=== PATIENT | female | born 1935 | race Caucasian/White ===

== ENCOUNTER 2022-12-04 13:13 | Inpatient (IN) | payer OTHER, SELFPAY ==
[2022-12-04] VITALS (16 sets, daily range): BP systolic 100–165; BP diastolic 58–82; PULSE 87–104; RESP 14–20; TEMP 36.4–36.8; O2SAT 91–97; BMI 19.0; BMI 24.5
--- NOTE | 2022-12-04 13:45 | DI.RAD.S_ITS ---
PROCEDURE: XR FEMUR LT MIN 2V INDICATIONS: fall onto knee, severe pain in hip, h/o path fx / osteoporosis TECHNIQUE: 2 views of the femur were acquired. COMPARISON: [facility], CR, XR HIP W PEL IF DONE LT 2V, 12/04/2022, 14:20. [facility], CR, XR KNEE LT 3V, 12/04/2022, 14:20. FINDINGS: Bones: There is a mildly displaced, comminuted fracture seen involving the left greater trochanter. No additional femur fracture is seen. Soft tissues: No suspicious soft tissue calcifications or masses. Pelvic clips are partially seen. IMPRESSION: Mildly displaced, comminuted fracture present involving the left greater trochanter. Dictated by: Tano Cruz M.D. on 12/04/2022 at 13:47 Approved by: Tano Cruz M.D. on 12/04/2022 at 13:47
--- NOTE | 2022-12-04 13:45 | DI.RAD.S_ITS ---
PROCEDURE: XR KNEE LT 3V INDICATIONS: fall onto knee, severe pain in hip, h/o path fx / osteoporosis TECHNIQUE: 3 views of the knee were acquired. COMPARISON: None. FINDINGS: Artifact can be seen on the frontal image. Bones: No fractures or dislocations. No suspicious bony lesions. There is moderate medial femorotibial joint space narrowing seen, with associated remodeling changes including subchondral sclerosis and osteophyte formation along the jointline. On the sunrise view, there is moderate lateral patellofemoral joint space narrowing seen. Osteophyte formation can be seen along the margins of the patella. Soft tissues: No joint effusion. No suspicious soft tissue calcifications. IMPRESSION: Negative for acute bony injury by plain film. If there is point tenderness (or other clinical suspicion for a fracture not seen on these images) then a dedicated CT could be considered for further evaluation, if clinically appropriate. Underlying osteoarthritic degenerative changes are seen. Dictated by: Tano Cruz M.D. on 12/04/2022 at 13:41 Approved by: Tano Cruz M.D. on 12/04/2022 at 13:42
--- NOTE | 2022-12-04 13:45 | DI.RAD.S_ITS ---
PROCEDURE: XR HIP W PEL IF DONE LT 2V INDICATIONS: fall onto knee, severe pain in hip, h/o path fx / osteoporosis TECHNIQUE: AP pelvis with lateral view(s) of the left hip(s). COMPARISON: [facility], CR, XR KNEE LT 3V, 12/04/2022, 14:20. [facility], CR, XR FEMUR LT MIN 2V, 12/04/2022, 14:20. FINDINGS: Bones: There is a mildly displaced fracture seen involving the left greater trochanter. Remote appearing fractures can be seen involving the right superior and inferior pubic rami. Pelvic ring appears intact. No suspicious bony lesions. Underlying degenerative changes and osteopenia can be seen. Soft tissues: The visualized bowel gas pattern is normal. No suspicious soft tissue calcifications. Bilateral pelvic clips are seen. IMPRESSION: Mildly displaced fracture involving the left greater trochanter. Remote appearing fractures can be seen of the right superior pubic ramus and the right inferior pubic ramus. Dictated by: Tano Cruz M.D. on 12/04/2022 at 13:44 Approved by: Tano Cruz M.D. on 12/04/2022 at 13:45
[2022-12-04 15:14] LABS: Add Manual Diff / Slide Review NO; Basophils Absolute Auto 100 /uL (0-100); Basophils Percent Auto 0.6 % (0-2); Eosinophils Absolute Auto 400 /uL (0-450); Eosinophils Percent Auto 4.2 % (2-4); Hemoglobin 12.3 g/dL (12.0-16.0); Lymphocytes Absolute Auto 1300 /uL (1100-4500); Lymphocytes Percent Auto 13.4 % (25-40); Mean Corpuscular HGB Conc 34.1 % (30-36); Mean Corpuscular Hemoglobin 30.2 PG (26-34); Mean Corpuscular Volume 88.8 fL (80-100); Monocytes Absolute Auto 1100 /uL (0-900); Monocytes Percent Auto 11.1 % (3-14); Neutrophils Absolute Auto 6800 /uL (1500-7000); Neutrophils Percent Auto 70.7 % (50-75); Platelet Count 320 X10^3/uL (150-400); Red Blood Cell Count 4.05 X10^6/uL (4.0-5.2); Red Cell Distribution Width 14.5 % (11.6-14.8); White Blood Cell Count 9.5 X10^3/uL (4.5-11.0)
[2022-12-04] MEDS: ONDANSETRON 4 MG/2 ML INJ IV ×2 (15:15→18:14)
[2022-12-04 15:16] LABS: INR 1.1 (0.9-1.3); Prothrombin Time 13.1 SECONDS (10.1-12.7)
[2022-12-04 15:18] LABS: Alanine Aminotransferase 24 IU/L (<35); Albumin 4.2 g/dL (3.5-5.0); Albumin Globulin Ratio 1.4 (1.0-2.8); Alkaline Phosphatase 85 U/L (38-126); Aspartate Aminotransferase 30 IU/L (14-36); BUN Creatinine Ratio 37.8 (6-22); Bilirubin Total 0.5 mg/dL (0.2-1.3); Blood Urea Nitrogen 17 mg/dL (7-17); Calcium 9.4 mg/dL (8.4-10.2); Carbon Dioxide 26 mmol/L (22-32); Chloride 94 mmol/L (98-107); Estimated Glomerular Filt Rate > 60 mL/min (>60); Globulin 2.9 g/dL (1.7-4.1); Glucose 123 mg/dL (80-110); HEMOLYSIS 29 (0-50); Lipase 58 U/L (23-300); Potassium 3.9 mmol/L (3.4-5.1); Sodium 130 mmol/L (137-145); Total Protein 7.1 g/dL (6.3-8.2)
[2022-12-04] MEDS: SODIUM CHLORIDE 0.9% 1,000 ML 150 ML IV (16:32)
--- NOTE | 2022-12-04 17:30 | ED_ITS ---
HPI - Fall General Chief Complaint: Fall Stated Complaint: GLF, Left hip pain Time Seen by Provider: 12/04/22 15:03 Source: patient and EMS Mode of arrival: EMS History of Present Illness HPI Narrative: 87-year-old woman with a history of hypertension hyperlipidemia at their [place] home on [facility] when she slipped on a wet spot in the grass [place] on her left hip. She was unable to get up. She did not hit her head and complains of no other injuries. Recently has been at her baseline level of excellent health without any fevers, chills, cough, chest pain, dyspnea. Related Data Home Medications Medication Instructions Recorded Confirmed amlodipine 2.5 mg tablet 2.5 mg PO DAILY 12/04/22 12/04/22 atorvastatin 40 mg tablet 40 mg PO DAILY 12/04/22 12/04/22 bisoprolol fumarate 5 mg tablet 5 mg PO DAILY 12/04/22 12/04/22 Allergies Allergy/AdvReac Type Severity Reaction Status Date / Time Sulfa (Sulfonamide AdvReac Verified 12/04/22 20:30 Antibiotics) Review of Systems Review of Systems Narrative: Pertinent positive and negative findings as per HPI Patient History Medical History (Updated 12/05/22 @ 10:01 by Malini Steven MD) Recurrent falls Closed left hip fracture Hyperlipidemia Hypertension Social History household members: spouse Smoking Status: Never smoker alcohol intake: current Exam Initial Vital Signs Initial Vital Signs: Vital Signs Temperature 98.2 F 12/04/22 13:41 Pulse Rate 87 12/04/22 13:41 Respiratory Rate 20 12/04/22 13:41 Blood Pressure 155/82 H 12/04/22 13:41 Pulse Oximetry 97 12/04/22 13:41 Oxygen Delivery Method Room Air 12/04/22 13:41 General: Healthy appearing, in no acute distress. Able to give a complete and coherent history. Well-nourished well-developed HEENT: Moist mucous membranes, normal sclera with reactive pupils, Neck: No midline cervical spine tenderness, supple Respiratory: Lungs are clear to auscultation, no wheezing no rales no rhonchi. Full and symmetrical air movement Cardiac: Regular rate and rhythm no murmurs no bruits Abdomen: Soft, nontender, good bowel tones, no flank pain Skin: Warm and dry, no rashes Neurologic: Grossly neurologically intact with no obvious asymmetries or abnormalities Extremities: Left hip is tender to palpation but no obvious contusion, she is neurovascularly intact distally Psych: Cooperative, appropriate insight and affect Course Orders Ordered: Acetaminophen (Acetaminophen 325 Mg Tablet) 650 mg PO Q6H PRN PRN Reason: Fever/Mild Pain (1-3) Hydromorphone HCl (Hydromorphone 0.5 Mg Inj) 0.25 mg IV Q3H PRN PRN Reason: Pain, Severe (7-10) Naloxone HCl (Naloxone 0.4 Mg/Ml Vial) 0.2 mg IV Q2MIN PRN PRN Reason: Opiate Reversal Ondansetron HCl (Ondansetron 4 Mg Odt) 4 mg SL Q4HR PRN PRN Reason: Nausea Ondansetron HCl (Ondansetron 4 Mg/2 Ml Inj) 4 mg IV Q4HR PRN PRN Reason: Nausea And Vomiting Oxycodone HCl (Oxycodone Ir 5 Mg Tablet) 5 mg PO Q3H PRN PRN Reason: Pain, Moderate (4-6) Oxycodone HCl (Oxycodone Ir 10 Mg Tablet) 10 mg PO Q3H PRN PRN Reason: Pain, Severe (7-10) Discontinued Medications Acetaminophen (Acetaminophen 325 Mg Tablet) 650 mg PO NOW ONE Stop: 12/04/22 18:29 Last Admin: 12/04/22 18:55 Dose: 650 mg Documented By: JOSEFA Hydromorphone HCl (Hydromorphone 0.5 Mg Inj) 0.5 mg IV Q15MIN PRN PRN Reason: Pain, Last Admin: 12/04/22 17:54 Dose: 0.5 mg Documented By: MIRANDA Hydromorphone HCl (Hydromorphone 0.5 Mg Inj) 0.25 mg IV Q15MIN PRN PRN Reason: Pain, Hydromorphone HCl (Hydromorphone 0.5 Mg Inj) 0.5 mg IV Q2H PRN PRN Reason: Pain, Severe (7-10) Sodium Chloride (Normal Saline 0.9%) 1,000 mls @ 150 mls/hr IV CONT [facility] Last Infusion: 12/04/22 20:09 Dose: 150 mls/hr Documented By: Admin: 12/04/22 16:32 Dose: 150 mls/hr Documented By: MIRANDA Dextrose/Lactated Ringer's (Dextrose 5%-Lactated Ringers) 1,000 mls @ 75 mls/hr IV CONT [facility] Last Admin: 12/04/22 20:56 Dose: 75 mls/hr Documented By: MICHAEL Ibuprofen (Ibuprofen 400 Mg Tablet) 400 mg PO Q4H PRN PRN Reason: Pain, Mild (1-3) Ondansetron HCl (Ondansetron 4 Mg Odt) 4 mg PO NOW PRN PRN Reason: Nausea And Vomiting Ondansetron HCl (Ondansetron 4 Mg/2 Ml Inj) 4 mg IV NOW PRN PRN Reason: Nausea And Vomiting Last Admin: 12/04/22 18:14 Dose: 4 mg Documented By: MIRANDA Ondansetron HCl (Ondansetron 4 Mg/2 Ml Inj) 4 mg IV NOW ONE Stop: 12/04/22 15:04 Last Admin: 12/04/22 15:15 Dose: 4 mg Documented By: JORDANA Ondansetron HCl (Ondansetron 4 Mg/2 Ml Inj) 4 mg IV Q4HR [facility] Last Admin: 12/05/22 00:41 Dose: Not Given Documented By: Admin: 12/04/22 20:58 Dose: Not Given Documented By: MICHAEL Ondansetron HCl (Ondansetron 4 Mg Odt) 4 mg PO Q4HR [facility] Last Admin: 12/05/22 00:41 Dose: Not Given Documented By: Admin: 12/04/22 20:58 Dose: Not Given Documented By: MICHAEL Vital Signs Vital signs: Vital Signs - 8 hr 12/04/22 13:41 12/04/22 15:08 12/04/22 15:10 Temperature 98.2 F Pulse Rate 87 100 H Respiratory Rate 20 16 Blood Pressure 155/82 H 159/71 H Pulse Oximetry 97 96 Oxygen Delivery Method Room Air 12/04/22 15:10 12/04/22 15:30 12/04/22 15:31 Temperature Pulse Rate 100 H 97 H Respiratory Rate Blood Pressure 159/70 H Pulse Oximetry 94 92 Oxygen Delivery Method 12/04/22 15:31 12/04/22 16:00 12/04/22 16:01 Temperature Pulse Rate 97 H 103 H Respiratory Rate 14 Blood Pressure 145/78 H Pulse Oximetry 96 93 Oxygen Delivery Method Room Air Room Air 12/04/22 16:01 12/04/22 16:30 12/04/22 16:30 Temperature Pulse Rate 102 H 97 H Respiratory Rate Blood Pressure 122/64 Pulse Oximetry 92 94 Oxygen Delivery Method Room Air Room Air 12/04/22 17:00 12/04/22 17:00 Temperature Pulse Rate 92 H Respiratory Rate Blood Pressure 138/59 L Pulse Oximetry 93 Oxygen Delivery Method Room Air Room Air MDM - Fall Lab Data 12/05/22 04:54 12/05/22 04:54 Labs: Lab Results 12/04/22 12/04/22 Range/Units 13:30 15:35 WBC 9.5 (4.5-11.0) X10^3/uL RBC 4.05 (4.0-5.2) X10^6/uL Hgb 12.3 (12.0-16.0) g/dL Hct 36.0 (36-46) % MCV 88.8 (80-100) fL MCH 30.2 (26-34) PG MCHC 34.1 (30-36) % RDW 14.5 (11.6-14.8) % Plt Count 320 (150-400) X10^3/uL Neut % (Auto) 70.7 (50-75) % Lymph % (Auto) 13.4 L (25-40) % [place] % (Auto) 11.1 (3-14) % Eos % (Auto) 4.2 H (2-4) % Baso % (Auto) 0.6 (0-2) % Neut # (Auto) 6800 (0509-8863) /uL Lymph # (Auto) 1300 (3000-1281) /uL [place] # (Auto) 1100 H (0-900) /uL Eos # (Auto) 400 (0-450) /uL Baso # (Auto) 100 (0-100) /uL PT 13.1 H (10.1-12.7) SECONDS INR 1.1 (0.9-1.3) Sodium 130 L (137-145) mmol/L Potassium 3.9 (3.4-5.1) mmol/L Chloride 94 L (98-107) mmol/L Carbon Dioxide 26 (22-32) mmol/L BUN 17 (7-17) mg/dL Creatinine 0.45 L (0.52-1.04) mg/dL Estimated GFR > 60 (>60) mL/min BUN/Creatinine Ratio 37.8 H (6-22) Glucose 123 H (80-110) mg/dL Calcium 9.4 (8.4-10.2) mg/dL Total Bilirubin 0.5 (0.2-1.3) mg/dL AST 30 (14-36) IU/L ALT 24 (<35) IU/L Alkaline Phosphatase 85 (38-126) U/L Total Protein 7.1 (6.3-8.2) g/dL Albumin 4.2 (3.5-5.0) g/dL Globulin 2.9 (1.7-4.1) g/dL Albumin/Globulin Ratio 1.4 (1.0-2.8) Lipase 58 (23-300) U/L Blood Type B Positive Antibody Screen Negative MDM Narrative Medical decision making narrative: CC: Fall with left hip pain, mechanical fall Complicating co-morbidities: Age Data collected from: patient, air lift Social determinants of health that may influence the patients condition: Patient lives in both [place] and on [facility] Medical records reviewed: No records are available for review Differential considered: Hip fracture, pelvic fracture, hematoma, alternate trauma Exam documented above, pertinent findings include: Tenderness along the left hip, unable to bear weight Lab Test results independently reviewed as above. Pertinent findings: CBC is unremarkable Chemistries show mild hyponatremia at 130, normal creatinine Imaging studies independently reviewed: X-ray of the pelvis is unremarkable X-ray of the left knee is unremarkable X-ray of the hip shows a mildly displaced fracture involving the left greater trochanter MRI hip: Comminuted left intertrochanteric fracture. Moderate associated edema. Consultations:Discussion with Dr Torres, reviewed x-rays in real-time. Requested MRI to help with acute fracture management Discussed with Dr. Trevino, hospitalist will admit the patient. Treatments: Oral Tylenol, IV Dilaudid Discussion: Patient with mechanical fall, left hip fracture MRI is currently pending is admitted to the hospitalist service with orthopedic consultation. Findings reviewed with the patient, pain is controlled questions are answered she is safe for transfer to the floor Discharge Plan Departure Patient Disposition: Admitted As Inpatient Clinical Impression: Fall from ground level Closed hip fracture Qualifiers: Encounter type: initial encounter Laterality: left Qualified Code(s): S72.002A - Fracture of unspecified part of neck of left femur, initial encounter for closed fracture Admit Date/Time: 12/04/22 18:58 Admit Provider: Arian Trevino
[2022-12-04] MEDS: HYDROMORPHONE 0.5 MG INJ IV (17:54)
--- NOTE | 2022-12-04 18:22 | DI.MRI.S_ITS ---
PROCEDURE: MR HIP LT WO CON INDICATIONS: fracture, ortho request TECHNIQUE: Noncontrast coronal T1 spin echo and STIR through the bony pelvis. Coronal and axial T2 fast spin echo with fat saturation, sagittal T1 spin echo, and oblique axial T2 fast spin echo with fat saturation through the hip. COMPARISON: [facility], CR, XR FEMUR LT MIN 2V, 12/04/2022, 14:20. [facility], CR, XR HIP W PEL IF DONE LT 2V, 12/04/2022, 14:20. FINDINGS: Image quality: Excellent. Bones and joints: Acute comminuted fracture of the left intertrochanteric hip (04/16). Associated bone marrow edema. The fracture extends to the cortex at the medial aspect. The fracture is nondisplaced. No avascular necrosis of the femoral heads. The visualized lower lumbar spine appears normally aligned. Tendons and ligaments: The gluteus medius and minimus tendons appear intact. The iliopsoas tendon appears intact. The origin of the hamstring tendon is intact at the ischial tuberosity. The straight and reflected heads of the rectus femoris muscle origin appear intact. Labrum and cartilage: The acetabular labrum appears intact in the absence of intra-articular contrast. Cartilage surface of the femoral head appears of normal thickness. Soft tissues: Small hematoma adjacent to the left hip. Moderate edema. Bladder is decompressed with Harris catheter. Visualized muscles demonstrate normal bulk. The proximal sciatic neurovascular bundle appears normal adjacent to the hamstring tendons. IMPRESSION: Comminuted left intertrochanteric fracture. Moderate associated edema. Dictated by: Kp Kaye M.D. on 12/05/2022 at 9:20 Approved by: Kp Kaye M.D. on 12/05/2022 at 9:27
[2022-12-04] MEDS: ACETAMINOPHEN 325 MG TABLET 650 MG PO (18:55)
--- NOTE | 2022-12-04 20:05 | PM.HP.1 ---
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 She slipped on a wet grass landing on left hip. On admission with left hip pain and no additional complaints. Xrays showed minimally displaced left greater trochanter fracture, in addition to old right superior and inferior pubic rami and osteoporosis. On admission somewhat confused, possibly from pain medications although can be redirected. Reports on lack of balance and blepharospasms contributing to her falls. 6 years ago she sustained pelvic fracture. Aware of osteoporosis, takes only MVI. [facility] Medical History (Updated 12/04/22 @ 21:26 by Hossein Eckert MD) Recurrent falls Closed left hip fracture Hyperlipidemia Hypertension Social History household members: spouse Smoking Status: Never smoker alcohol intake: current Meds Home Medications and Allergies Home Medications Medication Instructions Recorded Confirmed Type amlodipine 2.5 mg tablet 2.5 mg PO DAILY 12/04/22 12/04/22 History atorvastatin 40 mg tablet 40 mg PO DAILY 12/04/22 12/04/22 History bisoprolol fumarate 5 mg tablet 5 mg PO DAILY 12/04/22 12/04/22 History Allergies Allergy/AdvReac Type Severity Reaction Status Date / Time Sulfa (Sulfonamide AdvReac Verified 12/04/22 20:30 Antibiotics) Review of Systems Review of Systems Narrative: Confused, poor historian Constitutional Comments: no fever or chills Cardiovascular Comments: w/o chest pain or palpitations Respiratory Comments: w/o shortness of breath Musculoskeletal Comments: left hip pain Exam Vital Signs (past 8 hours): - 12/04/22 13:41 12/04/22 15:08 12/04/22 15:10 Temperature 98.2 F Pulse Rate 87 100 H Respiratory Rate 20 16 Blood Pressure 155/82 H 159/71 H Pulse Oximetry 97 96 Oxygen Delivery Method Room Air 12/04/22 15:10 12/04/22 15:30 12/04/22 15:31 Temperature Pulse Rate 100 H 97 H Respiratory Rate Blood Pressure 159/70 H Pulse Oximetry 94 92 Oxygen Delivery Method 12/04/22 15:31 12/04/22 16:00 12/04/22 16:01 Temperature Pulse Rate 97 H 103 H Respiratory Rate 14 Blood Pressure 145/78 H Pulse Oximetry 96 93 Oxygen Delivery Method Room Air Room Air 12/04/22 16:01 12/04/22 16:30 12/04/22 16:30 Temperature Pulse Rate 102 H 97 H Respiratory Rate Blood Pressure 122/64 Pulse Oximetry 92 94 Oxygen Delivery Method Room Air Room Air 12/04/22 17:00 12/04/22 17:00 12/04/22 17:30 Temperature Pulse Rate 92 H Respiratory Rate Blood Pressure 138/59 L 129/58 L Pulse Oximetry 93 Oxygen Delivery Method Room Air Room Air 12/04/22 17:30 12/04/22 18:00 12/04/22 18:01 Temperature Pulse Rate 101 H 104 H Respiratory Rate Blood Pressure 165/69 H Pulse Oximetry 92 93 Oxygen Delivery Method 12/04/22 18:01 12/04/22 18:30 12/04/22 18:30 Temperature Pulse Rate 104 H 101 H Respiratory Rate Blood Pressure 110/73 Pulse Oximetry 95 92 Oxygen Delivery Method Room Air 12/04/22 19:00 12/04/22 19:00 12/04/22 19:30 Temperature Pulse Rate 100 H Respiratory Rate Blood Pressure 107/65 118/62 Pulse Oximetry 94 Oxygen Delivery Method 12/04/22 19:30 Temperature Pulse Rate 89 Respiratory Rate 16 Blood Pressure Pulse Oximetry 95 Oxygen Delivery Method Room Air Oxygen Delivery Method Room Air Const Other: In no distress Eyes Other: large left facial hematoma in recession - likely several days old Neck Other: supple Chest Other: Normal respiratory effort Cardio Other: RRR GI Other: abdomen not distended Skin Other: abrasions, lacerations - Lt knee and elbow Neuro Other: appears encephalopathic - likely side effects of narcotic. Will check UA Extrem Other: w/o neurovascular compromise of left leg Objective Labs 12/04/22 13:30 12/04/22 13:30 Labs: Laboratory Results - last 24 hr 12/04/22 12/04/22 13:30 15:35 WBC 9.5 RBC 4.05 Hgb 12.3 Hct 36.0 MCV 88.8 MCH 30.2 MCHC 34.1 RDW 14.5 Plt Count 320 Neut % (Auto) 70.7 Lymph % (Auto) 13.4 L [place] % (Auto) 11.1 Eos % (Auto) 4.2 H Baso % (Auto) 0.6 Neut # (Auto) 6800 Lymph # (Auto) 1300 [place] # (Auto) 1100 H Eos # (Auto) 400 Baso # (Auto) 100 PT 13.1 H INR 1.1 Sodium 130 L Potassium 3.9 Chloride 94 L Carbon Dioxide 26 BUN 17 Creatinine 0.45 L Estimated GFR > 60 BUN/Creatinine Ratio 37.8 H Glucose 123 H Calcium 9.4 Total Bilirubin 0.5 AST 30 ALT 24 Alkaline Phosphatase 85 Total Protein 7.1 Albumin 4.2 Globulin 2.9 Albumin/Globulin Ratio 1.4 Lipase 58 Blood Type B Positive Antibody Screen Negative Assessment & Plan Assessment and plan (1) Fracture of greater trochanter of left femur: Status: Acute Plan: Orthopedic senior sustainability consultant requested MRI - pending, operative vs non-operative management. NPO for possible OR in am. (2) Hypertension: Status: Acute Plan: Bisoprolol and Amlodipine. On hold for presumed OR in am (3) Hyperlipidemia: Status: Acute Plan: statin (4) Osteoporosis: Status: Acute Plan: PCP to address. Only on MVIs. (5) Recurrent falls: Status: Acute Plan: Reports on lack of balance and blepharospasms as a cause. She had botox injection for blepharospasms and has not a cane, but something like a cane at home (6) Fall from ground level: Status: Acute Plan: see above (7) History of pelvic fracture: Status: Acute Plan: Rt sup / inf pubic rami, 6 yrs ago, in one of recurrent falls (8) Altered mental state: Status: Acute Plan: likely side effects of pain medications, will check UA
[2022-12-04] MEDS: DEXTROSE 5%-LACTATED RINGERS 1,000 ML 75 ML IV (20:56)
[2022-12-04 21:40] LABS: Appearance Urine UA CLEAR; Bilirubin Urine UA NEGATIVE (NEGATIVE); Color Urine UA YELLOW; Glucose Urine UA NEGATIVE (Negative); Ketones Urine UA NEGATIVE (NEGATIVE); Leukocyte Esterase Urine UA TRACE (NEGATIVE); Nitrite Urine UA NEGATIVE (Negative); Occult Blood Urine UA 2+ (Negative); Protein Urine UA TRACE (Negative); Specific Gravity Urine UA 1.025 (1.000-1.035); Urobilinogen Urine UA 0.2 E.U./dL (0.2)
[2022-12-04 22:00] LABS: Bacteria Urine None Seen; RBC Urine 1-5/HPF (0-5/HPF); WBC Urine 1-5/HPF (0-5/HPF)
[2022-12-04 22:01] LABS: Culture Indicated Urine Specimen Cultured; Squamous Epithelial Cell Urine 1-5 /HPF (0-5/HPF)
--- NOTE | 2022-12-04 22:08 | PC.ADMIT ---
Est[facility] L[facility] Killian Admission Note: Patient admitted to AC unit from ED at 20:13, spouse present. A/O to self, place, situation, month, forgetful. Denies pain or nausea. D5 LR running at 75ml/hr in R AC. Harris patent draining clear, yellow urine. Urine specimen collected and sent to lab. Bed in low position, locked. Bed alarm on and call light within reach. The patient,Gregoria Rush,87 y/o, was given written information regarding hospital policies, unit procedures and contact persons. Patient's smoking status: Never smoker. Vital Signs - 8 hr 12/04/22 15:08 12/04/22 15:10 12/04/22 15:10 Temperature Pulse Rate 100 H 100 H Respiratory Rate 16 Blood Pressure 159/71 H Pulse Oximetry 96 94 Oxygen Delivery Method 12/04/22 15:30 12/04/22 15:31 12/04/22 15:31 Temperature Pulse Rate 97 H 97 H Respiratory Rate 14 Blood Pressure 159/70 H Pulse Oximetry 92 96 Oxygen Delivery Method Room Air 12/04/22 16:00 12/04/22 16:01 12/04/22 16:01 Temperature Pulse Rate 103 H 102 H Respiratory Rate Blood Pressure 145/78 H Pulse Oximetry 93 92 Oxygen Delivery Method Room Air Room Air 12/04/22 16:30 12/04/22 16:30 12/04/22 17:00 Temperature Pulse Rate 97 H Respiratory Rate Blood Pressure 122/64 138/59 L Pulse Oximetry 94 Oxygen Delivery Method Room Air Room Air 12/04/22 17:00 12/04/22 17:30 12/04/22 17:30 Temperature Pulse Rate 92 H 101 H Respiratory Rate Blood Pressure 129/58 L Pulse Oximetry 93 92 Oxygen Delivery Method Room Air 12/04/22 18:00 12/04/22 18:01 12/04/22 18:01 Temperature Pulse Rate 104 H 104 H Respiratory Rate Blood Pressure 165/69 H Pulse Oximetry 93 95 Oxygen Delivery Method 12/04/22 18:30 12/04/22 18:30 12/04/22 19:00 Temperature Pulse Rate 101 H Respiratory Rate Blood Pressure 110/73 107/65 Pulse Oximetry 92 Oxygen Delivery Method Room Air 12/04/22 19:00 12/04/22 19:30 12/04/22 19:30 Temperature Pulse Rate 100 H 89 Respiratory Rate 16 Blood Pressure 118/62 Pulse Oximetry 94 95 Oxygen Delivery Method Room Air 12/04/22 19:50 12/04/22 21:05 Temperature 97.6 F Pulse Rate 99 H Respiratory Rate 16 Blood Pressure 100/59 L Pulse Oximetry 91 Oxygen Delivery Method Room Air
[2022-12-05 05:22] LABS: Add Manual Diff / Slide Review NO; Basophils Absolute Auto 0 /uL (0-100); Basophils Percent Auto 0.3 % (0-2); Eosinophils Absolute Auto 100 /uL (0-450); Eosinophils Percent Auto 2.1 % (2-4); Hemoglobin 10.5 g/dL (12.0-16.0); Lymphocytes Absolute Auto 700 /uL (1100-4500); Lymphocytes Percent Auto 11.2 % (25-40); Mean Corpuscular HGB Conc 33.7 % (30-36); Mean Corpuscular Hemoglobin 29.7 PG (26-34); Monocytes Absolute Auto 800 /uL (0-900); Monocytes Percent Auto 13.2 % (3-14); Neutrophils Absolute Auto 4700 /uL (1500-7000); Neutrophils Percent Auto 73.2 % (50-75); Platelet Count 254 X10^3/uL (150-400); Red Blood Cell Count 3.52 X10^6/uL (4.0-5.2); Red Cell Distribution Width 14.5 % (11.6-14.8); White Blood Cell Count 6.4 X10^3/uL (4.5-11.0)
[2022-12-05 05:36] LABS: BUN Creatinine Ratio 27.7 (6-22); Blood Urea Nitrogen 13 mg/dL (7-17); Calcium 8.9 mg/dL (8.4-10.2); Carbon Dioxide 28 mmol/L (22-32); Chloride 96 mmol/L (98-107); Estimated Glomerular Filt Rate > 60 mL/min (>60); Glucose 117 mg/dL (80-110); HEMOLYSIS < 15 (0-50); Potassium 3.7 mmol/L (3.4-5.1); Sodium 130 mmol/L (137-145)
--- NOTE | 2022-12-05 07:57 | PC.NURSE ---
Addendum entered by Lizy Cowart R.N. 12/05/22 14:31: pt awaiting surgery and feeling frustrated about wait, c/o pain but refuses any meds- at bedside Original Note: Pt alert orient to self and place-vss, denies pain, transported to mri- at bs
--- NOTE | 2022-12-05 08:05 | P.PN_ITS ---
Subjective Subjective Interval history: Patient in minimal pain. Awaiting surgery. MRI showed left comminuted intertrochanteric fracture which ortho says requires surgery. Exam Vital Signs (past 8 hours): Oxygen Delivery Method Room Air Const Other: In no distress Eyes Other: large left facial hematoma in recession - likely several days old Neck Other: supple Chest Other: Normal respiratory effort Cardio Other: RRR GI Other: abdomen not distended Skin Other: abrasions, lacerations - Lt knee and elbow Neuro Other: appears encephalopathic - likely side effects of narcotic. Will check UA Extrem Other: w/o neurovascular compromise of left leg Objective Labs 12/05/22 04:54 12/05/22 04:54 Labs: Laboratory Results - last 24 hr 12/04/22 12/04/22 12/04/22 13:30 15:35 21:37 WBC 9.5 RBC 4.05 Hgb 12.3 Hct 36.0 MCV 88.8 MCH 30.2 MCHC 34.1 RDW 14.5 Plt Count 320 Neut % (Auto) 70.7 Lymph % (Auto) 13.4 L [place] % (Auto) 11.1 Eos % (Auto) 4.2 H Baso % (Auto) 0.6 Neut # (Auto) 6800 Lymph # (Auto) 1300 [place] # (Auto) 1100 H Eos # (Auto) 400 Baso # (Auto) 100 PT 13.1 H INR 1.1 Sodium 130 L Potassium 3.9 Chloride 94 L Carbon Dioxide 26 BUN 17 Creatinine 0.45 L Estimated GFR > 60 BUN/Creatinine Ratio 37.8 H Glucose 123 H Calcium 9.4 Total Bilirubin 0.5 AST 30 ALT 24 Alkaline Phosphatase 85 Total Protein 7.1 Albumin 4.2 Globulin 2.9 Albumin/Globulin Ratio 1.4 Lipase 58 Urine Color Yellow Urine Appearance Clear Urine pH 6.0 Ur Specific [place] 1.025 Urine Protein Trace H Urine Glucose (UA) Negative Urine Ketones Negative Urine Occult Blood 2+ H Urine Nitrate Negative Urine Bilirubin Negative Urine Urobilinogen 0.2 Ur Leukocyte Esterase Trace H Urine RBC 1-5/hpf Urine WBC 1-5/hpf Ur Squamous Epith Cells 1-5 /hpf Urine Bacteria None seen Ur Culture Indicated? Specimen cultured Micro UA Comment * Blood Type B Positive Antibody Screen Negative 12/05/22 04:54 WBC 6.4 RBC 3.52 L Hgb 10.5 L Hct 31.0 L MCV 88.0 MCH 29.7 MCHC 33.7 RDW 14.5 Plt Count 254 Neut % (Auto) 73.2 Lymph % (Auto) 11.2 L [place] % (Auto) 13.2 Eos % (Auto) 2.1 Baso % (Auto) 0.3 Neut # (Auto) 4700 Lymph # (Auto) 700 L [place] # (Auto) 800 Eos # (Auto) 100 Baso # (Auto) 0 PT INR Sodium 130 L Potassium 3.7 Chloride 96 L Carbon Dioxide 28 BUN 13 Creatinine 0.47 L Estimated GFR > 60 BUN/Creatinine Ratio 27.7 H Glucose 117 H Calcium 8.9 Total Bilirubin AST ALT Alkaline Phosphatase Total Protein Albumin Globulin Albumin/Globulin Ratio Lipase Urine Color Urine Appearance Urine pH Ur Specific [place] Urine Protein Urine Glucose (UA) Urine Ketones Urine Occult Blood Urine Nitrate Urine Bilirubin Urine Urobilinogen Ur Leukocyte Esterase Urine RBC Urine WBC Ur Squamous Epith Cells Urine Bacteria Ur Culture Indicated? Micro UA Comment Blood Type Antibody Screen [facility] Medical History (Updated 12/05/22 @ 10:01 by Malini Steven MD) Recurrent falls Closed left hip fracture Hyperlipidemia Hypertension Social History household members: spouse Smoking Status: Never smoker alcohol intake: current Assessment & Plan Assessment and plan (1) Fracture of greater trochanter of left femur: Status: Acute Plan: Orthopedic training consultant requested MRI - shows fracture requiring surgery NPO for surgery today (2) Hypertension: Status: Acute Plan: Bisoprolol and Amlodipine. On hold as BP soft (3) Hyperlipidemia: Status: Acute Plan: statin (4) Osteoporosis: Status: Acute Plan: PCP to address. Only on MVIs. (5) Recurrent falls: Status: Acute Plan: Reports on lack of balance and blepharospasms as a cause. She had botox injection for blepharospasms and has not a cane, but something like a cane at home (6) Fall from ground level: Status: Acute Plan: see above (7) History of pelvic fracture: Status: Acute Plan: Rt sup / inf pubic rami, 6 yrs ago, in one of recurrent falls (8) Altered mental state: Status: Acute Plan: likely side effects of pain medications, will check UA Plan Dispo: Pending surgery then PT eval for SNF vs home. Quality VTE Deep Vein Thrombosis/Pulmonary Embolism Present on Admission: No
[2022-12-05 08:12] LABS: Magnesium 1.9 mg/dL (1.6-2.3)
[2022-12-05] MEDS: ACETAMINOPHEN 325 MG TABLET 650 MG PO ×2 (10:15→15:36)
--- NOTE | 2022-12-05 10:24 | CM.DANOTE ---
Patient is an 87 yo female who was admitted on 12/04/22 for GLF/Hip pain. Pt has [facility] for insurance and her PCP is not listed. EMR was reviewed. Per MD, pt with balance issues and past multiple GLFs and admitted for hip fx. SW met bedside with pt and spouse and explained role and they confirm that they are here from [place] staying at their summer home on [address] and were only here for the week and were planning to fly back to [place] soon. Pt is mostly independent at baseline and uses a cane for ambulation and also has a couple walkers at home but she doesn't use them much. Spouse mostly drives and assists with chores. SW discussed waiting for MRI results and Ortho Consult to determine if surgery needed and then pt would work with PT/OT to determine d/c planning needs of home vs SNF pending her progress with mobility. Spouse and pt seem aware of SNF rehab and the need for getting [facility] auth and SW will have to determine if [facility] auth could be done with [facility] or if [facility] would need to be called. Pt and spouse seem agreeable with any d/c recommendations but will await eventual PT/OT eval. Per Ortho Consult bedside after rounds, recommendation of surgical intervention later today and pt remains NPO. Plan: SW to follow closely post surgery later today for PT/OT eval and recommendations to determine home vs SNF before pt and spouse return to their primary home in [place]. ERIKA Guzman Discharge Planning/Care Management CM Discharge Assessment Start: 12/05/22 10:21 Freq: Status: Active Protocol: Document 12/05/22 10:21 BF (Rec: 12/05/22 10:24 [id number]) Discharge Planning Assessment Assigned Ticket Marker ERIKA Choe DPOA/Assigned Designee Name spouse Willard Contact Information [phone] Advance Directives? No Advance Directives on File No History Provided By Patient,Family Member,Medical Record Has Patient been admitted in last 30 No days? Prior Living Arrangements House Comment [facility] Household Members spouse Type of transporation used prior to Relies on Others admit Independent with ADL's Yes Is patient alert and oriented? Yes Needs Assistance With Home Chores / Shopping Caregiver for Another No DME Already Rented / Owned FWW / Walker,Cane Patient/Family Preference [facility] Facility,Home with Home Health Comment SNF vs HH pending PT/OT post surg eval Barriers to Discharge No Discharge Plan [facility] Facility Transportation Arrangement spouse vs SNF van pending PT/ OT post surg Referrals Initiated [facility],Home Health Additional Comment SNF vs HH pending surgery and PT/OT eval Whiteboard Updated in Patient Room with Yes name and ext. # of Ticket Marker Review Status In Process Please Provide Date Initial DC 12/05/22 Assessment Was Performed Next Review Type Continued Stay Review
[2022-12-05 10:34] VITALS: BP 113/50; PULSE 65; RESP 18; TEMP 36.6; O2SAT 94
[2022-12-05] MEDS: OXYCODONE IR 5 MG TABLET PO (15:31)
[2022-12-05 16:25] VITALS: BP 140/69; PULSE 76; RESP 18; TEMP 36.9; O2SAT 99
--- NOTE | 2022-12-05 19:41 | PC.NURSE ---
Went to Pt from to update Pt regarding Surgery initially scheduled for 12:00. Explained to that the present surgery was taking longer than expected and it my be later in the day. Dr Torres called to say the surgery would be scheduled for 06:00 tomorrow given that the other surgery was going long. Discussed this with the . He understood but was disappointed. as long as you feed her she won't rage. Dr. Thomas said she could eat. NPO at [place].
[2022-12-06] VITALS (11 sets, daily range): BP systolic 118–170; BP diastolic 68–82; PULSE 61–96; RESP 12–18; TEMP 35.6–36.3; O2SAT 93–100
[2022-12-06 06:05] LABS: Add Manual Diff / Slide Review NO; Basophils Absolute Auto 100 /uL (0-100); Basophils Percent Auto 0.9 % (0-2); Eosinophils Absolute Auto 300 /uL (0-450); Eosinophils Percent Auto 3.9 % (2-4); Hematocrit 35.5 % (36-46); Hemoglobin 12.1 g/dL (12.0-16.0); Lymphocytes Absolute Auto 700 /uL (1100-4500); Lymphocytes Percent Auto 8.6 % (25-40); Mean Corpuscular HGB Conc 34.2 % (30-36); Mean Corpuscular Volume 87.8 fL (80-100); Monocytes Absolute Auto 1000 /uL (0-900); Monocytes Percent Auto 11.7 % (3-14); Neutrophils Absolute Auto 6300 /uL (1500-7000); Neutrophils Percent Auto 74.9 % (50-75); Platelet Count 260 X10^3/uL (150-400); Red Blood Cell Count 4.04 X10^6/uL (4.0-5.2); Red Cell Distribution Width 14.6 % (11.6-14.8); White Blood Cell Count 8.4 X10^3/uL (4.5-11.0)
--- NOTE | 2022-12-06 06:15 | P.HP_ITS ---
History of Present Illness History of Present Illness Date Patient Seen: 12/06/22 Time Patient Seen: 06:15 Date of Onset of Symptoms: 12/04/22 Chief complaint: GLF, Left hip pain Narrative: This is an 87 year old F with GLF sustaining a left hip injury. She was seen at [facility] Emergency Department where imaging was taken. X-rays initially demonstrated a greater trochanter fracture. MRI confirmed intertrochanteric extension. She is here with in the preoperative holding area. She denies any recent nausea, vomiting, diarrhea, fevers, chills or any other constitutional symptoms. No other complaints at this time. [facility] Medical History (Updated 12/05/22 @ 10:01 by Malini Steven MD) Recurrent falls Closed left hip fracture Hyperlipidemia Hypertension Social History household members: spouse Smoking Status: Never smoker alcohol intake: current Meds Home Medications and Allergies Home Medications Medication Instructions Recorded Confirmed Type amlodipine 2.5 mg tablet 2.5 mg PO DAILY 12/04/22 12/04/22 History atorvastatin 40 mg tablet 40 mg PO DAILY 12/04/22 12/04/22 History bisoprolol fumarate 5 mg tablet 5 mg PO DAILY 12/04/22 12/04/22 History Allergies Allergy/AdvReac Type Severity Reaction Status Date / Time Sulfa (Sulfonamide AdvReac Verified 12/04/22 20:30 Antibiotics) Review of Systems Review of Systems ROS: Yes All systems reviewed with the patient and are negative except as otherwise documented Exam Vital Signs (past 8 hours): Oxygen Delivery Method Room Air Oxygen Flow Rate 0 Narrative Exam Narrative: HEENT: Head atraumatic eyes anicteric moist mucous membranes Cardiovascular: Palpable peripheral pulses extremities are warm and well perfused Respiratory: Breathing comfortably on room air Psychiatric: Appropriate mood and affect Neuro: No acute deficits Musculoskeletal: Exam of the left lower extremity demonstrates leg held with slight internal rotation. Did not range leg due to known injury. Sensation intact to light touch in L2 through S2. 2+ dorsalis pedis pulse with brisk capillary refill less than 2 seconds. Able to demonstrate 5/5 strength in tib ant, gastrocs, EHL and FHL. Objective Imaging XRay hip: My impression: X-ray left hip demonstrates a greater trochanter fracture with possible extension MRI left hip demonstrates an intertrochanteric femur fracture Labs 12/06/22 05:31 12/05/22 04:54 Labs: Laboratory Results - last 24 hr 12/05/22 12/06/22 04:54 05:31 WBC 8.4 RBC 4.04 Hgb 12.1 Hct 35.5 L MCV 87.8 MCH 30.0 MCHC 34.2 RDW 14.6 Plt Count 260 Neut % (Auto) 74.9 Lymph % (Auto) 8.6 L [place] % (Auto) 11.7 Eos % (Auto) 3.9 Baso % (Auto) 0.9 Neut # (Auto) 6300 Lymph # (Auto) 700 L [place] # (Auto) 1000 H Eos # (Auto) 300 Baso # (Auto) 100 Magnesium 1.9 Assessment & Plan Assessment & Plan narrative: Assessment: Left intertrochanteric femur fracture Plan: Plan for intramedullary nail left hip. This will be for fixation of the intertrochanteric femur fracture and to allow early weight-bearing. Risks and benefits of surgery were discussed again including the risk of infection, damage to internal structures, bleeding, nerve injury, instability, need for revision surgery, blood clots, anesthesia and . No guarantees were made regarding outcomes. Patient expressed understanding and accepted these risks and wished to go forward with surgery and consent was signed. Quality VTE Deep Vein Thrombosis/Pulmonary Embolism Present on Admission: No
[2022-12-06 06:22] LABS: BUN Creatinine Ratio 21.7 (6-22); Blood Urea Nitrogen 10 mg/dL (7-17); Calcium 8.7 mg/dL (8.4-10.2); Carbon Dioxide 26 mmol/L (22-32); Chloride 97 mmol/L (98-107); Estimated Glomerular Filt Rate > 60 mL/min (>60); Glucose 103 mg/dL (80-110); HEMOLYSIS < 15 (0-50); Potassium 3.9 mmol/L (3.4-5.1); Sodium 130 mmol/L (137-145)
[2022-12-06] MEDS: CEFAZOLIN 2 GM/100 ML PREMIX 100 ML IV (06:30)
[2022-12-06] MEDS: ACETAMINOPHEN IV 1,000 MG/100 ML VIAL 400 MG IV (06:43)
--- NOTE | 2022-12-06 06:49 | SUR.OPER ---
Supine on padded [place] table with bilateral legs secured in padded positioning boots and suspended in positioning spars, operative leg in traction per surgeon. Head on one pillow. Arm on non-operative side secured on padded armboard <90 degrees abduction. Arm on operative side padded and resting across chest then secured with tape over sheet. Padded perineal post in place per surgeon.
[2022-12-06] MEDS: BUPIVACAINE 0.5% (PF) 30 ML, EPINEPHrine 0.15 MG INJ (06:54)
--- NOTE | 2022-12-06 07:20 | P.PN_ITS ---
Subjective Subjective Interval history: Patient underwent hip repair surgery this AM. Doing well afterward and pain is minimal. Awaiting PT eval. Exam Vital Signs (past 8 hours): Oxygen Delivery Method Room Air Oxygen Flow Rate 0 Narrative Exam Narrative: HEENT: Head atraumatic eyes anicteric moist mucous membranes Cardiovascular: Palpable peripheral pulses extremities are warm and well perfused Respiratory: Breathing comfortably on room air Psychiatric: Appropriate mood and affect Neuro: No acute deficits Musculoskeletal: Post surgical hip dressing in place Objective Labs 12/06/22 05:31 12/06/22 05:31 Labs: Laboratory Results - last 24 hr 12/05/22 12/06/22 04:54 05:31 WBC 8.4 RBC 4.04 Hgb 12.1 Hct 35.5 L MCV 87.8 MCH 30.0 MCHC 34.2 RDW 14.6 Plt Count 260 Neut % (Auto) 74.9 Lymph % (Auto) 8.6 L [place] % (Auto) 11.7 Eos % (Auto) 3.9 Baso % (Auto) 0.9 Neut # (Auto) 6300 Lymph # (Auto) 700 L [place] # (Auto) 1000 H Eos # (Auto) 300 Baso # (Auto) 100 Sodium 130 L Potassium 3.9 Chloride 97 L Carbon Dioxide 26 BUN 10 Creatinine 0.46 L Estimated GFR > 60 BUN/Creatinine Ratio 21.7 Glucose 103 Calcium 8.7 Magnesium 1.9 PFSH Medical History (Updated 12/05/22 @ 10:01 by Malini Steven MD) Recurrent falls Closed left hip fracture Hyperlipidemia Hypertension Social History household members: spouse Smoking Status: Never smoker alcohol intake: current Assessment & Plan Assessment and plan (1) Fracture of greater trochanter of left femur: Status: Acute Plan: Orthopedic design and sales consultant requested MRI - shows fracture requiring surgery underwent surgical repair on 12/06 ASA BID x3 weeks for DVT proph (2) Hypertension: Status: Acute Plan: Bisoprolol and Amlodipine. On hold as BP soft (3) Hyperlipidemia: Status: Acute Plan: statin (4) Osteoporosis: Status: Acute Plan: PCP to address. Only on MVIs. (5) Recurrent falls: Status: Acute Plan: Reports on lack of balance and blepharospasms as a cause. She had botox injection for blepharospasms and has not a cane, but something like a cane at home (6) Fall from ground level: Status: Acute Plan: see above (7) History of pelvic fracture: Status: Acute Plan: Rt sup / inf pubic rami, 6 yrs ago, in one of recurrent falls (8) Altered mental state: Status: Acute Plan: likely side effects of pain medications, will check UA Plan Dispo: Home with HH on 12/07. Quality VTE Deep Vein Thrombosis/Pulmonary Embolism Present on Admission: No
--- NOTE | 2022-12-06 07:22 | PM.OP.1 ---
Operative Date/Time/Diagnoses Date of procedure: 12/06/22 Time of procedure: 07:22 Pre-op diagnosis: Left intertrochanteric femur fracture Post-op diagnosis: same Procedure & Clinicians Procedure: Left hip cephalomedullary nail Same procedure as scheduled: Yes Indications: Indications: This is a 87 year old female with the above diagnosis. We discussed that in order to facilitate mobilization early, as well as proper healing of the fracture, we recommend operative fixation using an intramedullary nail. The risks and benefits and alternatives to the procedure were discussed. The risks include bleeding, infection, damage to internal structures, failure of the implants, and future surgery as well as anesthesia. No guarantees were made regarding outcomes. Patient expressed understanding with these risks and wished to go forth with surgery. Surgeon: Jacobo Torres Click Yes if Unassisted: Yes Anesthesia Type: General Operative Notes Findings: Operative findings: Intertrochanteric hip fracture, reducible with traction using leverage to the operating table. Closure Type: primary Specimen(s): none sent Prosthetic devices, grafts, tissues, transplants, or devices: Implants: [employer] InterTAN nail, short, size 10 with 1 single distal interlocking screw Estimated Blood Loss (mL): 20 Blood products transfused: none Procedure in detail: Details of operation: The patient's identity was verified. The left hip was verified and site of surgery was marked. Prophylactic antibiotics were administered. The patient was taken to the operating room and anesthesia was established. Patient was positioned supine on the operating table. The feet were padded and placed into the traction boots with the injured hip in slight adduction and the uninjured hip extended about 30?. A C-arm was then brought into the OR and positioned perpendicularly to allow visualization of the hip and AP and lateral planes. The fracture was reduced by applying longitudinal traction and internal rotation and a small amount of adduction. The lateral surface of the hip was sterilely prepped after which a vertical isolation drape was placed. The surgical team paused in the patient's identity, surgical procedure and surgical site were verified. A small incision was made proximal to the greater trochanter through the fascia to the tip of the trochanter could be palpated. A threaded guide pin was then inserted through the tip of the greater trochanter to the level of the lesser tuberosity. Once the wire was appropriately positioned the entry hole was drilled. The entry/channel Reamer was used to enter the cortex and reamed the metaphyseal portion of the canal. The intramedullary nail was assembled on the insertion handle and the nail was inserted and its depth verified. Our attention was then turned to the proximal locking of the nail. A small incision was made laterally over the distal vastus tubercle, through the fascia down to the bone and the targeting jig sleeve was advanced to the bone. Under fluoroscopic control, a guidewire was positioned through the lateral cortex of the femoral neck and into the center of the femoral head. Once the wire was appropriately positioned, the length of nail was measured the lateral cortex was opened with a drill. The lag screw was assembled on the insertion handle and advanced over the guidewire into the center of the femoral head to beneath the subchondral surface. The compression screw was then placed and compressed under fluoroscopic imaging. Final AP and lateral projections were taken confirming correct nail and screw placement. Our attention was then directed distally to the interlocking of the nail. An incision was made and the guide was used to place the sleeve down to the bone. The bone was then drilled and measured and interlocking screw was placed. The wounds were copiously irrigated. The subcutaneous area was closed with interrupted 2-0 Vicryl. The wound was then infiltrated with 0.5% marcaine with epinephrine. The skin was then closed with pat after which a sterile dressing was applied. Patient was subsequently transferred from the [place] table to the hospital bed. Disposition: The patient was taken to the recovery room in stable condition having tolerated the procedure without difficulty. Complications: none Post-operative Condition: stable Disposition: PACU Plan for aftercare: Postoperative plan: Weightbearing as tolerated with crutches or walker for 4 weeks. After 4 weeks it is okay to ambulate without assistance if stable and strong enough. DVT prophylaxis for 4 weeks (default aspirin 81 mg b.i.d., is unable to take aspirin, and then Lovenox, 40 mg subcutaneous daily). Okay to change dressings to clean dry dressings after 3 days. Okay for dressings to come off completely at 7 days. Okay for warm soap and water to run over the incision and a shower or sponge bath, however no soaking the wound. Follow-up in 2 weeks for staple removal, and follow-up in [address] Torres with x-rays on arrival
[2022-12-06] MEDS: ONDANSETRON 4 MG/2 ML INJ IV (07:57)
--- NOTE | 2022-12-06 08:17 | SUR.PHASEI ---
Upon waking from anesthesia, pt was very confused and agitated. She was taking off her gown and blankets stating Leave me alone When assessing orientation pt could only confirm her name and that she thought she was at home. She would not answer further questions. She was squirmed in the bed multiple times and was reassured and reoriented. Pt was assisted to reposition into one that was more comfortable for her and ice bag had been applied. She asked to see her Willard and was more calm when told we would bring her to him in her room on the AC floor. Report was called and provided to VARGHESE Mascorro. Pt was calm and cooperative upon reaching her room and seeing her .
[2022-12-06] MEDS: ACETAMINOPHEN 325 MG TABLET 650 MG PO (13:30)
--- NOTE | 2022-12-06 14:15 | PT.IIE ---
Addendum entered and electronically signed by Thais Khan PT 12/06/22 14:36: PT requested OT order. RN to pursue. Original Note: Current Diagnoses Hyperlipidemia, unspecified (12/04/22) Essential (primary) hypertension (12/04/22) Age-related osteoporosis without current pathological fracture (12/04/22) Repeated falls (12/04/22) Altered mental status, unspecified (12/04/22) Displaced fracture of greater trochanter of left femur, initial encounter for closed fracture (12/04/22) Fall on same level, unspecified, initial encounter (12/04/22) Personal history of (healed) traumatic fracture (12/04/22) Surgery Performed Operation Date: 12/06/22 07:00 Actual Procedures p ORIF Hip/Intramedullary Hip Screw(Left) - Jacobo Torres MD Medical History (Last Updated 12/04/22 @ 21:26 by Hossein Eckert MD) Closed left hip fracture Hyperlipidemia Hypertension Recurrent falls Physical Therapy Inpatient Evaluation/Re-Eval M1 PT/OT-IP Prior Functional Status Start: 12/06/22 13:38 Freq: NEEDED Status: Active Protocol: Document 12/06/22 14:15 AW (Rec: 12/06/22 14:35 AW [id number]) Medical Review Prior Functional Status Medical History Reviewed Yes Communication Able to make needs known but with some confusion. Benefits from clear, single-step instructions with minimal environmental distraction. Mobility and Gait Modified independent with use of a single trekking pole. Activities of Daily Living and IADL's Independent Social History Household Members spouse Living Arrangements House Number of Floors (Floors) One Floor Number of Stairs To Enter/Railing? 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 She lives with her spouse in [facility]. She has been visiting her summer home here on [place] where she fell and broke her hip. M2 PT-IP Current Condition Start: 12/06/22 13:38 Freq: NEEDED Status: Active Protocol: Document 12/06/22 14:15 AW (Rec: 12/06/22 14:35 AW [id number]) Physical Therapy Current Condition Current Condition Evaluation Date 12/06/22 Treatment Diagnosis L intertrochanteric femur fx; impaired mobility and gait Onset Date 12/04/22 M3 PT-IP Subjective Start: 12/06/22 13:38 Freq: NEEDED Status: Active Protocol: Document 12/06/22 14:15 AW (Rec: 12/06/22 14:35 AW [id number]) Subjective Physical Therapy Visit Type Type Initial Evaluation Visit Start Time 13:44 Visit Stop Time 14:15 Total Visit Minutes 31 Notes Pt's spouse, Hira, was present throughout. Number of RN UTILIZATION MANAGEMENT UM Visits 0 Physical Therapy Visit Comments Patient Comments Pt is eager to participate with PT. She is forgetful and needs reminders that her hip was surgically fixed this AM. Patient Goals Hopeful to avoid SNF and return home to [place]. Therapy Pain Assessment Pain When Pain Assessed During Mobility Pain Present Pain Present Pain Reported Location Left HIp Intensity 7 Scale Used Numeric (0 - 10) Description With Movement Pain Management Techniques Apply Cold,Timing of Activity with Medications M4 PT-IP Mobility and Gait Start: 12/06/22 13:38 Freq: NEEDED Status: Active Protocol: Document 12/06/22 14:15 AW (Rec: 12/06/22 14:35 AW [id number]) PT-Bed Mobility Assessment Supine to Sit Supine to Sit Contact Guard Assistance, Minimal Assistance,Head of Bed Elevated PT-Transfer Assessment Sit to and From Stand Sit to and from Stand Contact Guard Assistance,Use of Upper Extremities Equipment Transfer Assistive Device Gait Belt,Front Wheeled Walker Orthotic/Prosthetic Devices or Brace: No Transfers Transfer Destination Chair Transfer Technique Stand Step Pivot Transfer Ability Level of Assist Contact Guard Assistance Comments Mobility Comments Pt was lying in bed as PT arrived. Pt able to perform ankle pumps, quad sets, and heel slides in bed prior to mobility. HOB lowered to ~20 degrees and pt needed CGA/min A to sit up at EOB and scoot forward for feet flat on floor . Educated pt and her spouse on weightbearing as tolerated using walker and both understood. CGA for sit to stand using FWW. Pt was able to shift weight laterally to test WB. LLE WB somewhat limited. Pt ambulated toward the window with FWW and CGA before returning to bedside and transferring to chair. Pt complained of increased pain in weightbearing but had no other complaints. Pt able to stand from the chair with CGA. She used the FWW to ambulate another 15 feet before returning to the chair and repositioning herself in recliner. Pt was left with spouse in room, call light at hand. Pt appeared to understand instruction to call for any mobility needs. Gait Assessment Gait Gait Assistance Required: Contact Guard Assist Distance (Feet) 15 Able to Maintain Weight Bearing Status Yes During Gait Assistive Devices Assistive Device Gait Belt,Front Wheeled Walker Orthotic/Prosthetic Devices or Brace: No Gait Deviations General Gait Pattern Antalgic,Decreased Stride Length,Decreased Feet Clearance,Flexed Trunk,Step-to Gait Factors Limiting Gait Function Factors Limiting Gait Function Decreased Strength,Pain,Poor Balance,Poor Safety Awareness Comments Gait Comments Pt ambulates with step-to pattern but is able to manage 15' x 2 without significant fatigue. Pt does best with youth-sized FWW. Stair Climbing Assessment Comments Stair Climbing Comments Not assessed. PT-Balance Assessment Sitting Balance and Reactions Static Sitting Balance Ability Good Dynamic Sitting Balance Ability Good Standing Balance and Reactions Static Standing Balance Ability Fair Dynamic Standing Balance Ability Fair Device Used FWW M5 PT-IP Objective Assessments Start: 12/06/22 13:38 Freq: NEEDED Status: Active Protocol: Document 12/06/22 14:15 AW (Rec: 12/06/22 14:35 AW [id number]) Orientation Orientation/Cognition Level of Alertness Confusional State Orientation Name,Place Safety Awareness Decreased Safety Awareness Memory Description Short Term Impaired Gross Range of Motion Upper Extremity ROM Assessment Within Functional Limits Lower Extremity ROM Assessment Left Impaired Strength Upper Extremity Strength Assessment Within Functional Limits Lower Extremity Strength Assessment Left Impaired Hip 3/5 Knee 4/5 Ankle 4+/5 Comments Strength Comments RLE grossly 4+/5 Sensation Assessment Sensation Gross Sensation Left LE Impaired Light Touch Impaired Comments Sensation Comments 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 M6 PT-IP Treatment Start: 12/06/22 13:38 Freq: NEEDED Status: Active Protocol: Document 12/06/22 14:15 AW (Rec: 12/06/22 14:35 AW [id number]) Physical Therapy Treatment Exercises Exercises Ankle Pumps,Gluteal Sets,Quad Sets,Heel Slides Education Education Provided Weight Bearing Status,Safety M7 PT-IP Assessment and Plan Start: 12/06/22 13:38 Freq: NEEDED Status: Active Protocol: Document 12/06/22 14:15 AW (Rec: 12/06/22 14:35 AW [id number]) PT Summary Assessment and Plan Potential Rehabilitation Potential Good Status of Condition at Evaluation Evolving Summary Impairments Pain,ROM,Strength,Balance, Sensation,Cognition,Bed Mobility,Transfers,Gait Assessment Summary Gregoria is an 87 yo woman seen for PT evaluation in the immediate postoperative setting following fixation of left intertrochanteric femur fracture with cephalomedullary nail. PMH includes recurrent falls, osteoporosis, HTN, HLD, and pelvic fractures. Pt is modified independent at baseline using a single trekking pole for most mobility. She is otherwise independent with ADL's. She lives with her spouse in a single level home in [place] [place]. She was visiting her summer home on [facility] when she fell. CLOF: Pt is confused and required re- orientation to situation but is able to follow simple commands and participate with PT. She requires CGA to min assist for bed mobility and CGA for transfers and ambulation using FWW. She has excellent potential to safely progress her mobility toward discharge home with spouse to assist. PT recommends home PT once pt reestablishes in [place] to help progress her back toward her modified independent baseline. Will continue to follow for mobility progression and stair training. Goals Bed Mobility Goal Standby Assistance Transfer Goal Standby Assistance,Front Wheeled Walker Gait Goal Standby Assistance,Front Wheel Walker Gait Distance 150 Other Goals - up/down three steps using single rail with SBA Days to Meet Goals 4 Frequency of Treatment Frequency Of Treatment Twice a Day Treatment Plan Physical Therapy Treatment Plan Bed Mobility Training,Transfer Training,Gait Training, Therapeutic Exercise,Balance Retraining,Post Op Education, Discharge Planning,Hot or Cold Pack,Neuromuscular Re-ed, Coordination Retraining,Manual Therapy Other Recommendations and Next Treatment provide post op packet; Focus progress gait and transfers; trial stairs when ready Weight Bearing Status Weight Bearing Status Weight Bear as Tolerated Recommendations To Nursing Amount of Assist Needed 1 Person Assist Discharge Recommendations PT Discharge Recommendations Home with Assistance,Home with / Assist Available,Home Health Equipment Needed for Home Before youth sized FWW Discharge Transportation Needs at Discharge Private Vehicle,Wheelchair/ Cabulance
--- NOTE | 2022-12-06 15:23 | CM.DPC ---
DCP Cont: Per MD, pt taken to OR with Ortho this morning and then to work with PT to determine d/c needs. Pt returned to floor from OR and per PT eval and recommendations feels pt could safely d/c home and would recommend HH and outpt f/u and youth sized walker. OT ordered and pending. SW spoke to spouse and he confirms that pt participated well with PT and he feels comfortable with a plan to discharge to home from the hospital and states that their current plan is not to return to [facility] but to discharge directly to the airport and then fly back to [place]. Spouse requests assist with PT issuing a youth size walker at d/c and also to contact [place] and PCP office to coordinate HH once they return to [place] in likely a day or two pending pt's progress. Pt's PCP is Dr. Rashaad Berry at the [facility] in [place]. Plan: SW to follow closely in the AM with pt's PCP office and [place] towards initiating HH once they return to [place] and outpt f/u with Ortho in [place] as well and confirm still safe plan of d/c back to [place] with spouse assist. ERIKA Guzman
[2022-12-06] MEDS: ASPIRIN EC 81 MG TABLET PO (20:05)
[2022-12-07] VITALS: BP 159/89; PULSE 93; RESP 19; TEMP 36.2; O2SAT 96
[2022-12-07] MEDS: ACETAMINOPHEN 325 MG TABLET 650 MG PO (04:35)
[2022-12-07 05:05] VITALS: BP 148/83; PULSE 89; RESP 22; TEMP 36.2; O2SAT 96
[2022-12-07 06:10] LABS: Add Manual Diff / Slide Review NO; Basophils Absolute Auto 0 /uL (0-100); Basophils Percent Auto 0.4 % (0-2); Eosinophils Absolute Auto 100 /uL (0-450); Hemoglobin 11.5 g/dL (12.0-16.0); Lymphocytes Absolute Auto 600 /uL (1100-4500); Lymphocytes Percent Auto 9.5 % (25-40); Mean Corpuscular HGB Conc 33.9 % (30-36); Mean Corpuscular Hemoglobin 29.7 PG (26-34); Mean Corpuscular Volume 87.7 fL (80-100); Monocytes Absolute Auto 800 /uL (0-900); Monocytes Percent Auto 12.3 % (3-14); Neutrophils Absolute Auto 5000 /uL (1500-7000); Neutrophils Percent Auto 75.8 % (50-75); Platelet Count 260 X10^3/uL (150-400); Red Blood Cell Count 3.88 X10^6/uL (4.0-5.2); Red Cell Distribution Width 14.1 % (11.6-14.8); White Blood Cell Count 6.6 X10^3/uL (4.5-11.0)
[2022-12-07 06:18] LABS: BUN Creatinine Ratio 20.8 (6-22); Blood Urea Nitrogen 10 mg/dL (7-17); Calcium 8.7 mg/dL (8.4-10.2); Carbon Dioxide 31 mmol/L (22-32); Chloride 92 mmol/L (98-107); Estimated Glomerular Filt Rate > 60 mL/min (>60); Glucose 110 mg/dL (80-110); HEMOLYSIS < 15 (0-50); Potassium 3.7 mmol/L (3.4-5.1); Sodium 129 mmol/L (137-145)
--- NOTE | 2022-12-07 07:30 | DI.RAD.S_ITS ---
PROCEDURE: XR HIP W PEL IF DONE RT 2V INDICATIONS: LEFT FX REPAIR TECHNIQUE: 2 view(s) of the hip acquired. COMPARISON: [facility], MR, MR HIP LT WO CON, 12/05/2022, 7:04. [facility], CR, XR HIP W PEL IF DONE LT 2V, 12/04/2022, 14:20. FINDINGS: Spot fluoroscopic intraoperative images demonstrate postsurgical changes related to placement of a gamma nail type device for fixation of the previously seen proximal femoral fracture. Hardware components are in expected positions. Surgical clips are noted in the pelvis. IMPRESSION: Intraoperative spot fluoroscopic images demonstrate internal fixation of the previously seen proximal femoral fracture. Approved by: Darrius Gregory M.D. on 12/07/2022 at 8:42
[2022-12-07 08:37] VITALS: BP 145/81; PULSE 100; RESP 17; TEMP 36.2; O2SAT 95
[2022-12-07] MEDS: SODIUM CHLORIDE 0.9% FLUSH 10 ML IV (08:40)
[2022-12-07] MEDS: ASPIRIN EC 81 MG TABLET PO (08:40)
--- NOTE | 2022-12-07 09:44 | OT.IP.EVAL ---
Current Diagnoses Hyperlipidemia, unspecified (12/04/22) Essential (primary) hypertension (12/04/22) Age-related osteoporosis without current pathological fracture (12/04/22) Repeated falls (12/04/22) Altered mental status, unspecified (12/04/22) Displaced fracture of greater trochanter of left femur, initial encounter for closed fracture (12/04/22) Fall on same level, unspecified, initial encounter (12/04/22) Personal history of (healed) traumatic fracture (12/04/22) Surgery Performed Operation Date: 12/06/22 07:00 Actual Procedures p ORIF Hip/Intramedullary Hip Screw(Left) - Jacobo Torres MD Past Medical History (Last Reviewed 12/07/22 @ 10:26 by Willard Patel PA-C) Closed left hip fracture Hyperlipidemia Hypertension Recurrent falls Occupational Therapy Inpatient Evaluation/Re-Eval M1 PT/OT-IP Prior Functional Status Start: 12/07/22 10:15 Freq: NEEDED Status: Active Protocol: Document 12/07/22 09:00 [facility] (Rec: 12/07/22 10:27 [facility] [id number]) Medical Review Prior Functional Status Medical History Reviewed Yes Communication Able to make needs known but with some confusion. Benefits from clear, single-step instructions with minimal environmental distraction. Mobility and Gait Modified independent with use of a single trekking pole. Activities of Daily Living and IADL's Independent, pt assist with finances. Social History Household Members spouse Living Arrangements House Number of Floors (Floors) One Floor Number of Stairs To Enter/Railing? 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 She lives with her spouse in [facility]. She has been visiting her summer home here on [place] where she fell and broke her hip. M2 OT-IP Current Condition Start: 12/07/22 10:15 Freq: Status: Active Protocol: Document 12/07/22 09:00 [facility] (Rec: 12/07/22 10:27 [facility] [id number]) Occupational Therapy Current Condition Current Condition Evaluation Date 12/07/22 Treatment Diagnosis S/P L hip cephalomedullary nail Diagnosis Onset Date 12/04/22 M3 OT- IP Subjective and Pain Start: 12/07/22 10:15 Freq: Status: Active Protocol: Document 12/07/22 09:00 [facility] (Rec: 12/07/22 10:27 [facility] [id number]) OT- Subjective Occupational Therapy Visit Type Type Initial Evaluation Visit Start Time 09:05 Visit Stop Time 09:44 Total Visit Minutes 39 Occupational Therapy Visit Comments Patient Comments Pt agreed to take a shower and pt's present for caregiver training. Patient/Caregiver Goals TO go home. OT Pain Assessment Pain When Pain Assessed During Mobility Pain Present Pain Present Pain Reported Location Left HIp Intensity 4 M4 OT- IP ADL's Start: 12/07/22 10:15 Freq: Status: Active Protocol: Document 12/07/22 09:00 [facility] (Rec: 12/07/22 10:27 [facility] [id number]) OT [id number] General Evaluation Self-Feeding Ability Independent OT ADL-Grooming General Evaluation Grooming Ability Independent OT ADL-Oral Care General Eval Oral Care Ability Independent OT ADL-Dressing General Eval Upper Body Dressing Ability Independent Lower Body Dressing Ability Moderate Assistance Comments OT Dressing Comments Assist to help thread her LLE into the pants , assist to pull up pants over her hips. Pt educated to chilo her LLE first and take out last. OT ADL-Toileting General Evaluation Toileting Ability Minimal Assistance Areas Needing Assistance Manage Clothing Comments OT Toileting Comments Suggested pt wear disposable brief or pads. OT ADL-Bathing General Evaluation Bathing Ability Minimal Assistance,Moderate Assistance Areas Needing Assistance Wash/Dry Back,Wash/Dry Lower Extremities Comments OT Bathing Comments Educated pt to sit from showering needs for safety. Pt needing assist for her back and lower legs. M5 OT- IP IADL's Start: 12/07/22 10:15 Freq: Status: Active Protocol: Document 12/07/22 09:00 [facility] (Rec: 12/07/22 10:27 [facility] [id number]) OT-Instrumental Activities of Daily Living Deficits IADL Deficits Identified Deficits Home Safety Awareness Home Safety Comments Pt is a bit forgetful and pt's aware to provide assist and supervision for all needs. Medication Management Medication Management Comments to asisst. Money Management Money Management Caregiver Provides Assistance Meal Preparation Meal Preparation Comments to assist. Propagation Worker Propagation Worker Comments to assist. M6 OT- IP Functional Cognition Start: 12/07/22 10:15 Freq: Status: Active Protocol: Document 12/07/22 09:00 [facility] (Rec: 12/07/22 10:27 [facility] [id number]) Cognitive Factors Limiting Selfcare Function Cognitive Ability Level of Alertness Alert Patient Orientation Name,Place,Situation Attention Span Ability Capable of Focused Attention, Capable of Sustained Attention Ability to Follow Commands Able to Follow One Step Commands with Increased Time, Able to Follow One Step Commands with Repetition Memory Description Short Term Impaired Cognitive Comments Cognitive Assessment Comments Pt needs concrete steps to follow. Pt is hard of hearing as well therefore making it hard for her to understand directions at times. Pt wears hearing aids. OT- Vision and Hearing OT- Hearing Assessment OT- Hearing Assessment Use of Hearing Aids OT- Vision Assessment Visual Acuity Glasses All The Time M7 OT- IP Mobility and Balance Start: 12/07/22 10:15 Freq: Status: Active Protocol: Document 12/07/22 09:00 [facility] (Rec: 12/07/22 10:27 [facility] [id number]) OT-Transfer Assessment Sit to and From Stand Sit to and from Stand Contact Guard Assistance, Minimal Assistance,Moderate Assistance Transfers Transfer Ability Standby Assistance,Minimal Assistance Technique Transfer Destination Chair,Shower Stall,Toilet Transfer Technique Stand Step Pivot Devices Transfer Assistive Devices Gait Belt,Front Wheeled Walker Comments Mobility Comments Pt needing vc to scoot forwards and from CGA to MODA to stand depending on height of the surface standing from . Pt will benefit from a youth FWW here to go home with. OT- Balance Assessment Sitting Balance and Reactions Static Sitting Balance Ability Normal Dynamic Sitting Balance Ability Good Standing Balance and Reactions Static Standing Balance Ability Fair Dynamic Standing Balance Ability Poor M8 OT- IP Objective Assessments Start: 12/07/22 10:15 Freq: Status: Active Protocol: Document 12/07/22 09:00 [facility] (Rec: 12/07/22 10:27 [facility] [id number]) OT Gross Range of Motion Upper Extremity Range of Motion Assessment Within Functional Limits OT Strength Upper Extremity Strength Assessment Within Functional Limits OT- Coordination Assessment Comments Coordination Comments INtact for FMS for clothing needs. M9 OT- IP Assessment and Plan Start: 12/07/22 10:15 Freq: Status: Active Protocol: Document 12/07/22 09:00 [facility] (Rec: 12/07/22 10:27 [facility] [id number]) OT Summary Assessment and Plan Potential Rehabilitation Potential Good Analytic Complexity at Evaluation Moderate Summary OT Impairments Pain,Balance,Functional Mobility,Dressing,Toileting, Bathing,Toilet Transfers, Shower Transfers,Activity Tolerance Progress Towards Goals Progressing Toward Goals Assessment Summary Pt MOD complexity and main barriers are steps, needing assist for LB dressing and showering needs. Pt's states good understanding to be able to assist pt for all needs. Pt will benefit from a youth FWW. Goals Dressing Goal Independent Toileting Goal Independent Bathing Goal Independent Toilet Transfer Goal Independent Shower Transfer Goal Independent Days to Meet Goals 10 Frequency of Treatment Frequency Of Treatment Once a Day Treatment Plan OT Treatment Plan ADL Training,Functional Cognition Training,Functional Mobility,Patient/Family Education,Discharge Planning Discharge Recommendations OT Discharge Recommendations Home with 20/09 Assist Available,Home Health Home Equipment Needs youth FWW Transportation Needs at Discharge Private Vehicle
--- NOTE | 2022-12-07 10:05 | PT.IPTN ---
Current Diagnoses Hyperlipidemia, unspecified (12/04/22) Essential (primary) hypertension (12/04/22) Age-related osteoporosis without current pathological fracture (12/04/22) Repeated falls (12/04/22) Altered mental status, unspecified (12/04/22) Displaced fracture of greater trochanter of left femur, initial encounter for closed fracture (12/04/22) Fall on same level, unspecified, initial encounter (12/04/22) Personal history of (healed) traumatic fracture (12/04/22) Surgery Performed Operation Date: 12/06/22 07:00 Actual Procedures p ORIF Hip/Intramedullary Hip Screw(Left) - Jacobo Torres MD Physical Therapy Treatment Note M2 PT-IP Current Condition Start: 12/06/22 13:38 Freq: NEEDED Status: Active Protocol: Document 12/06/22 14:15 AW (Rec: 12/06/22 14:35 AW [id number]) Physical Therapy Current Condition Current Condition Evaluation Date 12/06/22 Treatment Diagnosis L intertrochanteric femur fx; impaired mobility and gait Onset Date 12/04/22 M3 PT-IP Subjective Start: 12/06/22 13:38 Freq: NEEDED Status: Active Protocol: Document 12/07/22 10:45 TS (Rec: 12/07/22 11:01 TS [id number]) Subjective Physical Therapy Visit Type Type Treatment Note Visit Start Time 10:05 Visit Stop Time 10:40 Total Visit Minutes 35 Notes Spouse present for caregiver training. 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 Patient Goals Hopeful to avoid SNF and return home to [place]. Therapy Pain Assessment Pain When Pain Assessed During Mobility Pain Present Pain Present Pain Reported M4 PT-IP Mobility and Gait Start: 12/06/22 13:38 Freq: NEEDED Status: Active Protocol: Document 12/07/22 10:45 TS (Rec: 12/07/22 11:01 TS [id number]) PT-Transfer Assessment Sit to and From Stand Sit to and from Stand Contact Guard Assistance,1 Person Assistance,Use of Upper Extremities Equipment Transfer Assistive Device Gait Belt,Front Wheeled Walker Orthotic/Prosthetic Devices or Brace: No Comments Mobility Comments Pt found resting in chair, agreeable to PT. Pt is impulsive to stand before therapist is ready. Spouse instructed in and performed donning of gait belt. Sit to stand from chair w/FWW and CGA from spouse. She ambulated ~ 150'CGA from spouse with slow antalgic gait and use of FWW. She performed steps x3 with with RUE counter support nad handheld assist from spouse. She has some buckling on L side ascending and descending steps, requires consistent cues throughout session step sequencing. Pt was left back in chair with all needs met, spouse in room. Gait Assessment Gait Gait Assistance Required: Contact Guard Assist Distance (Feet) 150 Able to Maintain Weight Bearing Status Yes During Gait Assistive Devices Assistive Device Gait Belt,Front Wheeled Walker Orthotic/Prosthetic Devices or Brace: No Gait Deviations General Gait Pattern Antalgic,Decreased Stride Length,Decreased Feet Clearance,Flexed Trunk,Step-to Gait Factors Limiting Gait Function Factors Limiting Gait Function Decreased Strength,Pain,Poor Balance,Poor Safety Awareness Comments Gait Comments See mobility comments. Stair Climbing Assessment Evaluation Level of Assist On Stairs Minimal Assistance,1 Person Assistance Devices Stair Climbing Assistive Devices Left Railing,Right Railing Technique/Endurance Stair Climbing Direction Ascend and Descend Stair Climbing Technique Step to Step Number of Steps Climbed 3 Comments Stair Climbing Comments See mobility comments. PT-Balance Assessment Sitting Balance and Reactions Static Sitting Balance Ability Normal Dynamic Sitting Balance Ability Good Standing Balance and Reactions Static Standing Balance Ability Fair Dynamic Standing Balance Ability Fair Device Used FWW M5 PT-IP Objective Assessments Start: 12/06/22 13:38 Freq: NEEDED Status: Active Protocol: Document 12/06/22 14:15 AW (Rec: 12/06/22 14:35 AW [id number]) Orientation Orientation/Cognition Level of Alertness Confusional State Orientation Name,Place Safety Awareness Decreased Safety Awareness Memory Description Short Term Impaired Gross Range of Motion Upper Extremity ROM Assessment Within Functional Limits Lower Extremity ROM Assessment Left Impaired Strength Upper Extremity Strength Assessment Within Functional Limits Lower Extremity Strength Assessment Left Impaired Hip 3/5 Knee 4/5 Ankle 4+/5 Comments Strength Comments RLE grossly 4+/5 Sensation Assessment Sensation Gross Sensation Left LE Impaired Light Touch Impaired Comments Sensation Comments 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 M6 PT-IP Treatment Start: 12/06/22 13:38 Freq: NEEDED Status: Active Protocol: Document 12/07/22 10:45 TS (Rec: 12/07/22 11:01 TS [id number]) Physical Therapy Treatment Education Education Provided Weight Bearing Status,Post-Op Packet,Safety Other Treatments Other Treatment Performed Pt was provided post-op packet and education on post-op exercises. M7 PT-IP Assessment and Plan Start: 12/06/22 13:38 Freq: NEEDED Status: Active Protocol: Document 12/07/22 10:45 TS (Rec: 12/07/22 11:01 TS [id number]) PT Summary Assessment and Plan Potential Rehabilitation Potential Good Summary Impairments Pain,ROM,Strength,Balance, Sensation,Cognition,Bed Mobility,Transfers,Gait Progress Towards Goals Progressing Toward Goals Assessment Summary Gregoria is making good progress with her mobility this session. She is CGA with use of FWW for sit to stand from spouse. She progressed her gait to ~150'CGA with a slow antalgic gait. She progressed to stairs x3 with B rail support. Her L side tends to buckle with steps due to increased weakness and pain. Spouse was instructed in and performed donning of gait belt, sit to stands, gait and stair sequencing. A post-op packet was provided with educational sheet on exercises to perform at home. PT is recommending return home with 24/7 assist from spouse and HHPT. FWW was dispensed to pt. Goals Bed Mobility Goal Standby Assistance Transfer Goal Standby Assistance,Front Wheeled Walker Gait Goal Standby Assistance,Front Wheel Walker Gait Distance 150 Other Goals - up/down three steps using single rail with SBA Days to Meet Goals 4 Frequency of Treatment Frequency Of Treatment Twice a Day Treatment Plan Physical Therapy Treatment Plan Bed Mobility Training,Transfer Training,Gait Training, Therapeutic Exercise,Balance Retraining,Post Op Education, Discharge Planning,Hot or Cold Pack,Neuromuscular Re-ed, Coordination Retraining,Manual Therapy Other Recommendations and Next Treatment Progress gait and stairs. Focus Weight Bearing Status Weight Bearing Status Weight Bear as Tolerated Recommendations To Nursing Amount of Assist Needed 1 Person Assist Discharge Recommendations PT Discharge Recommendations Home with 24/7 Assist Available,Home Health Equipment Needed for Home Before youth sized FWW Discharge Transportation Needs at Discharge Private Vehicle,Wheelchair/ Cabulance
--- NOTE | 2022-12-07 10:25 | P.PN_ITS ---
Subjective Subjective Date Patient Seen: 12/07/22 Time Patient Seen: 10:25 Interval history: Patient states pain is [id number]. Patient working with physical therapy. Exam Vital Signs (past 8 hours): - 12/07/22 05:05 12/07/22 08:37 Temperature 97.2 F L 97.1 F L Pulse Rate 89 100 H Respiratory Rate 22 17 Blood Pressure 148/83 H 145/81 H Pulse Oximetry 96 95 Oxygen Flow Rate 0 0 Fraction of Inspired Oxygen 28 SaO2/FiO2 Ratio 346 Oxygen Delivery Method Room Air Oxygen Flow Rate 0 Narrative Exam Narrative: 87-year-old female practicing steps with physical therapy. Patient is in no apparent distress. Motor functions intact bilateral lower extremities. Const General: cooperative and comfortable Orientation: alert Resp Effort & Inspection: normal respiratory effort and able to speak in complete sentences Objective Labs 12/07/22 05:26 12/07/22 05:26 Labs: Laboratory Results - last 24 hr 12/07/22 05:26 WBC 6.6 RBC 3.88 L Hgb 11.5 L Hct 34.0 L MCV 87.7 MCH 29.7 MCHC 33.9 RDW 14.1 Plt Count 260 Neut % (Auto) 75.8 H Lymph % (Auto) 9.5 L [place] % (Auto) 12.3 Eos % (Auto) 2.0 Baso % (Auto) 0.4 Neut # (Auto) 5000 Lymph # (Auto) 600 L [place] # (Auto) 800 Eos # (Auto) 100 Baso # (Auto) 0 Sodium 129 L Potassium 3.7 Chloride 92 L Carbon Dioxide 31 BUN 10 Creatinine 0.48 L Estimated GFR > 60 BUN/Creatinine Ratio 20.8 Glucose 110 Calcium 8.7 PFSH Medical History Recurrent falls Closed left hip fracture Hyperlipidemia Hypertension Social History household members: spouse Smoking Status: Never smoker alcohol intake: current Assessment & Plan Post-op Postoperative Procedures: Procedures Operation Date: 12/06/22 07:00 Actual Procedure Side Surgeon p ORIF Hip/Intramedullary Hip Screw Left Jacobo Torres MD Postoperative day: 1 Postoperative status: doing well Postoperative status narrative: Status post left hip cephalomedullary nail December 06, 2022, patient progressing as expected Postoperative plan: routine post-op care Postoperative plan narrative: Weight-bearing as tolerated with crutches or walker for assistance x4 weeks After 4 weeks is okay to ambulate without assistance if stable and strong enough to do so. Aspirin 81 mg b.i.d. x4 weeks May remove dressing at 7 days, okay to shower, soap and water over incision okay, pat dry, no soaking the incisions Follow-up orthopedics in 2 weeks for staple removal with PA-C Follow up [address] Torres with x-rays Quality VTE Deep Vein Thrombosis/Pulmonary Embolism Present on Admission: No
--- NOTE | 2022-12-07 10:26 | P.DS_ITS ---
History of Present Illness History of Present Illness Date Patient Seen: 12/06/22 Time Patient Seen: 06:15 Date of Onset of Symptoms: 12/04/22 Chief complaint: GLF, Left hip pain Narrative: This is an 87 year old F with GLF sustaining a left hip injury. She was seen at [facility] Emergency Department where imaging was taken. X-rays initially demonstrated a greater trochanter fracture. MRI confirmed intertrochanteric extension. She is here with in the preoperative holding area. She denies any recent nausea, vomiting, diarrhea, fevers, chills or any other constitutional symptoms. No other complaints at this time. Discharge Providers Provider Date of admission: 12/04/22 18:58 Discharge Date: 12/07/22 Primary care physician: Doctor Diego MD Consults: 12/06/22 13:23 Consult to Physical Therapy Evaluate & Treat Comment: Physician Instructions: Evaluate and Treat 12/06/22 15:18 Consult to ACADEMIC AFFAIRS MANAGER - Supervisor Plastering Routine Comment: needs HH PT 12/06/22 15:19 Consult to Occupational Therapy Evaluate & Treat Comment: Physician Instructions: Evaluate and treat 12/07/22 10:14 Consult to Home Health Routine Comment: hip fx and hip surgery Reason For Exam: youth FWW for home use Discharge provider: Arian Trevino DO Summary Hospital Course Discharge Diagnosis: (1) Fracture of greater trochanter of left femur: Status: Acute Plan: Orthopedic [employer]m consultant requested MRI - shows fracture requiring surgery underwent surgical repair on 12/06 ASA BID x4 weeks for DVT proph (2) Hypertension: Status: Acute Plan: Bisoprolol and Amlodipine. On hold as BP soft (3) Hyperlipidemia: Status: Acute Plan: statin (4) Osteoporosis: Status: Acute Plan: PCP to address. Only on MVIs. (5) Recurrent falls: Status: Acute Plan: Reports on lack of balance and blepharospasms as a cause. She had botox injection for blepharospasms and has not a cane, but something like a cane at home (6) Fall from ground level: Status: Acute Plan: see above (7) History of pelvic fracture: Status: Acute Plan: Rt sup / inf pubic rami, 6 yrs ago, in one of recurrent falls (8) Acute toxic encephalopathy Status: Resolved Plan: likely side effects of pain medications, UA negative Hospital Course: Admitted for fall causing L hip fracture. This was repaired by ortho. Did well with a walker after surgery. Put on aspirin 81mg BID x4 weeks and tramadol PRN for pain. Is flying back to [place] and will see HH PT and have ortho follow- up there. Exam Vital Signs (past 8 hours): - 12/07/22 05:05 12/07/22 08:37 Temperature 97.2 F L 97.1 F L Pulse Rate 89 100 H Respiratory Rate 22 17 Blood Pressure 148/83 H 145/81 H Pulse Oximetry 96 95 Oxygen Flow Rate 0 0 Fraction of Inspired Oxygen 28 SaO2/FiO2 Ratio 346 Oxygen Delivery Method Room Air Oxygen Flow Rate 0 Narrative Exam Narrative: HEENT: Head atraumatic eyes anicteric moist mucous membranes Cardiovascular: Palpable peripheral pulses extremities are warm and well perfused Respiratory: Breathing comfortably on room air Psychiatric: Appropriate mood and affect Neuro: No acute deficits Musculoskeletal: Post surgical hip dressing in place Objective Labs 12/07/22 05:26 12/07/22 05:26 Labs: Laboratory Results - last 24 hr 12/07/22 05:26 WBC 6.6 RBC 3.88 L Hgb 11.5 L Hct 34.0 L MCV 87.7 MCH 29.7 MCHC 33.9 RDW 14.1 Plt Count 260 Neut % (Auto) 75.8 H Lymph % (Auto) 9.5 L [place] % (Auto) 12.3 Eos % (Auto) 2.0 Baso % (Auto) 0.4 Neut # (Auto) 5000 Lymph # (Auto) 600 L [place] # (Auto) 800 Eos # (Auto) 100 Baso # (Auto) 0 Sodium 129 L Potassium 3.7 Chloride 92 L Carbon Dioxide 31 BUN 10 Creatinine 0.48 L Estimated GFR > 60 BUN/Creatinine Ratio 20.8 Glucose 110 Calcium 8.7 PFSH Medical History Recurrent falls Closed left hip fracture Hyperlipidemia Hypertension Social History household members: spouse Smoking Status: Never smoker alcohol intake: current Discharge Plan Discharge Plan Patient Disposition: Home Health Service Provider Discharge Comment: Weightbearing as tolerated with crutches or walker for 4 weeks. After 4 weeks it is okay to ambulate without assistance if stable and strong enough. DVT prophylaxis for 4 weeks with baby aspirin. Okay to change dressings to clean dry dressings after 3 days. Okay for dressings to come off completely at 7 days. Okay for warm soap and water to run over the incision and a shower or sponge bath, however no soaking the wound. Follow-up in 2 weeks for staple removal, and follow-up in [address] Torres with x- rays on arrival. Discharge orders & Medications Prescriptions: New aspirin 81 mg Tablet,Delayed Release (Dr/Ec) 81 mg PO BID 28 Days Qty: 56 0RF tramadol 50 mg Tablet 50 mg PO TID PRN (Reason: Pain, Moderate (4-6)) Qty: 20 0RF Continued atorvastatin 40 mg tablet 40 mg PO DAILY amlodipine 2.5 mg tablet 2.5 mg PO DAILY bisoprolol fumarate 5 mg tablet 5 mg PO DAILY Follow up/Referrals: Miscellsolo,Doctor, MD [Primary Care Provider] - Visit Report/Discharge Packet Stand Alone Forms: Patient Portal/API, Stroke Signs & Symptoms Discharge Data Primary Care Provider: Diego,Doctor Quality VTE Deep Vein Thrombosis/Pulmonary Embolism Present on Admission: No
--- NOTE | 2022-12-07 10:45 | PC.NURSE ---
Pt is dressed and ready for discharge home with Spouse. She has been cleared by PT and has had a FWW provided. IV has been removed. Went over d/c instructions with Pt and Spouse-discussed d/c meds, time of last dose, reviewed stroke education, s/s of infection, keeping wound clean and dry and not immersing wound in water, no driving while on narcotics and until cleared by PCP. Encouraged ankle waves-especially during flight home, and caution when mobilizing to decrease opportunities to fall. Pt and Spouse denied further questions and Pt will be taken out via w/c by TITLE OFFICER to POV with Spouse and all belongings.
--- NOTE | 2022-12-07 11:36 | CM.DPC ---
DCP Discharge Home with HH Per Ortho PA, pt medically stable to d/c home. Per MD, pt medically stable to d/c home today and no identified barriers to discharge. Per GREASE CUP FILLER, issued pt the youth FWW and recommending safe d/c home with spouse assist and would benefit from HH. Per spouse request, SW called pt's PCP office Dr. Rashaad Berry at the [facility] at [phone] and updated on pt's admission and requested f/u appointment with PCP office and they scheduled pt for this week on 12/09 at 1420 for d/c follow up and to make HH referral. SW also requested to send pt's admission clinicals to PCP office to review and received the fax number and faxed pt's clinicals to be uploaded at PCP office for f/u appointment. SW met bedside with GREASE CUP FILLER, pt and spouse and they confirm they are agreeable with d/c today down to [place] and then they have a flight back to [place] in the AM and are very appreciative of the issued youth walker for d/c and the scheduled f/u with PCP office right after they get back home. No further needs at this time. Plan: Patient to d/c today via spouse POV to the airport to fly back to [place] and PCP appointment scheduled for f/u and HH referral in [place]. ERIKA Guzman
== END 2022-12-07 12:27 | disposition home health service (06) | DRG 480 ==
LOC: ED 18:50 → AC 18:58
PROVIDERS: Internal Medicine; Orthopaedic Surgery; Admitting Provider Student in an Organized Health Care Education/Training Program; Emergency Provider Emergency Medicine; Referring Provider Emergency Medicine; Visit Provider Student in an Organized Health Care Education/Training Program
PROC: 0QS706Z Reposition Left Upper Femur with Intramedullary Internal Fixation Device, Open Approach (ICD-10-PCS; CPT 27245; principal; 2022-12-06 07:00)
DX: S72.142A Displaced intertrochanteric fracture of left femur, initial encounter for closed fracture (principal); G92.9 Unspecified toxic encephalopathy; I10 Essential (primary) hypertension; E78.5 Hyperlipidemia, unspecified; T50.905A Adverse effect of unspecified drugs, medicaments and biological substances, initial encounter; W18.30XA Fall on same level, unspecified, initial encounter; Z91.81 History of falling
CPT/HCPCS: 36415; 73502; 73552; 73562; 73721; 76000; 80048; 80053; 81001; 83690; 83735; 85025; 85610; 86850; 86900; 86901; 87086; 94762; 96374; 96375; 96376; 97162; 97166; 97530; 97535; 99284; 99285; J0131; J0171; J0330; J0690; J1100; J1170; J2405; J2704; J3010; J3490; J7121